=== PATIENT | female | born 1970 | race Caucasian/White ===

== ENCOUNTER → 2016-10-17 | Outpatient (CLI) | payer OTHER ==
--- NOTE | 2016-10-17 09:18 | MA ---
Digital Screening Mammogram With iCAD Indication: Routine screening. Breast density: Type 2 - 25 to 50%. Technique: Four views of each breast are obtained including CC and oblique lateral Daniel (implant di splaced) and non-Daniel (implant not displaced) views. CAD is utilized using the iCAD product. Comparison: September 2015, May 2014, January 2013, and November 2010. Findings: No malignant-type calcifications, mass, or architectural distortion. Bilateral breast impl ants are unchanged in configuration. Impression: Negative mammogram. BI-RADS: 1. Negative. Recommendation: Routine screening in one year. [facility] will send a result letter to the patient. Negative mammography should not preclude additional workup of a clinically suspicious finding. The patient's information is entered into a reminder system with a target due date for her next mammo gram.
== END ==
LOC: CIMAGING 07:18
PROVIDERS: ATTEND Family Medicine
DX: Z12.31 Encounter for screening mammogram for malignant neoplasm of breast (principal)
CPT/HCPCS: G0202

== ENCOUNTER → 2017-11-22 | Outpatient (CLI) | payer OTHER | LOC: CIMAGING 12:20 | PROVIDERS: ATTEND Family Medicine | DX: Z12.31 Encounter for screening mammogram for malignant neoplasm of breast (principal) ==